=== PATIENT | male | born 1960 | race Caucasian/White ===

== ENCOUNTER 2023-08-16 00:50 | Inpatient (IN) | payer BC, OTHER ==
[2023-08-16] MEDS: Albuterol/Ipratropium 3.0-0.5 MG/3 ML Neb Soln ONE (01:14)
[2023-08-16] MEDS: Albuterol/Ipratropium 3.0-0.5 MG/3 ML Neb Soln NEB ONE (01:14)
[2023-08-16 01:18] LABS: BASOPHILS ABSOLUTE AUTO 0.1 K/mm3 (0.0-0.2); BASOPHILS PERCENT AUTO 0.5 % (0.0-1.0); EOSINOPHILS ABSOLUTE AUTO 0.1 K/mm3 (0.0-0.4); EOSINOPHILS PERCENT AUTO 1.1 % (0.0-6.0); HEMOGLOBIN 15.1 gm/dl (14.0-18.0); IMMATURE GRAN ABSOLUTE AUTO 0.05 K/mm3 (0.00-0.05); IMMATURE GRAN PERCENT AUTO 0.4 % (0.0-0.4); LYMPHOCYTES ABSOLUTE AUTO 2.9 K/mm3 (1.0-4.8); LYMPHOCYTES PERCENT AUTO 24.2 % (24.0-44.0); MEAN CORPUSCULAR HEMOGLOBIN 30.8 pg (28.0-32.0); MEAN CORPUSCULAR HGB CONC 32.8 g/dl (32.0-36.0); MEAN CORPUSCULAR VOLUME 93.7 fl (83.0-99.0); MEAN PLATELET VOLUME 10.5 fl (9.4-12.4); MONOCYTES PERCENT AUTO 8.1 % (0.0-8.0); NEUTROPHILS ABSOLUTE AUTO 7.8 K/mm3 (1.8-7.7); NEUTROPHILS PERCENT AUTO 65.7 % (41.0-71.0); PLATELET COUNT,PLT 199 K/mm3 (150-400); RED BLOOD CELL COUNT 4.91 M/mm3 (4.52-5.90)
[2023-08-16] MEDS: Sodium Chloride 0.9% 500 ML IV ONE (01:21)
[2023-08-16] MEDS: methylPREDNISolone Sodium Succinate 125 MG/2 ML SDV IVPUSH ONE (01:21)
[2023-08-16] MEDS: Nitroglycerin 0.4 MG Tab.SL SL ONE ×2 (01:31→04:52)
[2023-08-16 02:04] LABS: A/G RATIO 1.1 (1-2); ALBUMIN 3.7 g/dl (3.4-5.0); ANION GAP 13.2 (5-15); BILIRUBIN TOTAL 0.8 mg/dL (0.2-1.0); CALCIUM 9.3 mg/dL (8.5-10.1); EST CRCL DRUG DOSING (CG) 87.91 mL/min; POTASSIUM,K 4.2 mEq/L (3.5-5.1)
[2023-08-16] MEDS: Sodium Chloride 0.9% 10 ML Syringe FLUSH ONE (02:47)
[2023-08-16] MEDS: Sodium Chloride 0.9% 100 ML IV SCH (02:47)
[2023-08-16] MEDS: Iopamidol 755 Mg/ML 100 ML Bottle IVPUSH ONE (02:47)
[2023-08-16] MEDS: Nitroglycerin/D5W 25 MG/250 ML BOTTLE IV SCH (04:50)
[2023-08-16] MEDS ORDERED: Albuterol/Ipratropium 3.0-0.5 MG/3 ML Neb Soln NEB PRN (07:51)
[2023-08-16] MEDS ORDERED: Ondansetron 4 MG/2 ML SDV IV PRN (07:51)
[2023-08-16] MEDS ORDERED: Metoprolol Tartrate 5 MG/5 ML SDV IVPUSH PRN (07:59)
[2023-08-16] MEDS ORDERED: Diltiazem 125 MG in Sodium Chloride 0.9% 100 ML IV SCH (08:15)
[2023-08-16] MEDS ORDERED: niCARdipine HCl 25 MG in Sodium Chloride 0.9% 250 ML IV SCH (08:30)
[2023-08-16 08:46] LABS: TSH 0.785 uIU/mL (0.358-3.74)
[2023-08-16] MEDS: Metoprolol Tartrate 5 MG/5 ML SDV IVPUSH PRN (09:00)
[2023-08-16] MEDS: Diltiazem 25 MG/5 ML SDV IVPUSH ONE (09:00)
[2023-08-16] MEDS: Enoxaparin 40 MG/0.4 ML Syringe SUBCUT SCH (09:20)
[2023-08-16] MEDS: Carvedilol 3.125 MG Tab PO SCH (09:20)
[2023-08-16] MEDS: Losartan 25 MG Tab PO SCH (10:00)
[2023-08-16] MEDS: Metoprolol Tartrate 25 MG Tab PO SCH (10:08)
[2023-08-16] MEDS: Diltiazem 125 MG in Sodium Chloride 0.9% 100 ML IV SCH (11:55)
[2023-08-17 05:32] LABS: BASOPHILS PERCENT AUTO 0.3 % (0.0-1.0); EOSINOPHILS PERCENT AUTO 0.3 % (0.0-6.0); HEMATOCRIT 40.4 % (42.0-52.0); IMMATURE GRAN ABSOLUTE AUTO 0.06 K/mm3 (0.00-0.05); IMMATURE GRAN PERCENT AUTO 0.5 % (0.0-0.4); LYMPHOCYTES ABSOLUTE AUTO 2.5 K/mm3 (1.0-4.8); LYMPHOCYTES PERCENT AUTO 20.9 % (24.0-44.0); MEAN CORPUSCULAR HEMOGLOBIN 30.8 pg (28.0-32.0); MEAN CORPUSCULAR HGB CONC 33.2 g/dl (32.0-36.0); MEAN CORPUSCULAR VOLUME 92.9 fl (83.0-99.0); MEAN PLATELET VOLUME 11.5 fl (9.4-12.4); MONOCYTES ABSOLUTE AUTO 1.2 K/mm3 (0.0-0.8); MONOCYTES PERCENT AUTO 9.7 % (0.0-8.0); NEUTROPHILS ABSOLUTE AUTO 8.1 K/mm3 (1.8-7.7); NEUTROPHILS PERCENT AUTO 68.3 % (41.0-71.0); PLATELET COUNT,PLT 147 K/mm3 (150-400); RED BLOOD CELL COUNT 4.35 M/mm3 (4.52-5.90); WHITE BLOOD CELL COUNT,WBC 11.89 K/mm3 (3.9-11.3)
[2023-08-17 05:40] LABS: HEMOGLOBIN 13.4 gm/dl (14.0-18.0)
[2023-08-17 06:02] LABS: ALBUMIN 3.1 g/dl (3.4-5.0); ANION GAP 13.2 (5-15); CALCIUM 8.7 mg/dL (8.5-10.1); EST CRCL DRUG DOSING (CG) 87.91 mL/min; POTASSIUM,K 4.2 mEq/L (3.5-5.1); PROTEIN TOTAL,TP 6.1 g/dl (6.4-8.2)
[2023-08-17] MEDS ORDERED: Magnesium Sulfate (4.06 MEQ/ML) 5 GM/10 ML SDV IV ONE ×2 (07:52→12:20)
[2023-08-17] MEDS: atorvaSTATin 20 MG Tab PO SCH (08:36)
[2023-08-17] MEDS: Apixaban 5 MG Tab PO ONE (08:38)
[2023-08-17] MEDS: Aspirin 81 MG Tab.EC PO SCH (10:14)
[2023-08-17 10:47] LABS: BORDETELLA PARAPERT IS1001 Not Detected (Not Detected)
[2023-08-17] MEDS: Sodium Chloride 0.9% 1,000 ML ONE (12:31)
[2023-08-17] MEDS: Magnesium Sulfate/Water 2 GM in Premix Bag 1 BAG IV ONE (12:40)
[2023-08-17] MEDS: Propofol 200 MG/20 ML SDV IVPUSH ONE (13:00)
[2023-08-17] MEDS: Acetaminophen 325 MG Tab PO PRN (18:06)
[2023-08-18 05:40] LABS: A/G RATIO 1.1 (1-2); ALBUMIN 3.4 g/dl (3.4-5.0); ANION GAP 13.5 (5-15); BUN/CREATININE RATIO 31.7 (14-18); CALCIUM 8.9 mg/dL (8.5-10.1); CREATININE 1.2 mg/dL (0.7-1.3); EST CRCL DRUG DOSING (CG) 73.26 mL/min; POTASSIUM,K 4.5 mEq/L (3.5-5.1); PROTEIN TOTAL,TP 6.4 g/dl (6.4-8.2)
[2023-08-18 05:49] LABS: BASOPHILS PERCENT AUTO 0.4 % (0.0-1.0); EOSINOPHILS PERCENT AUTO 0.4 % (0.0-6.0); HEMOGLOBIN 14.4 gm/dl (14.0-18.0); IMMATURE GRAN ABSOLUTE AUTO 0.07 K/mm3 (0.00-0.05); IMMATURE GRAN PERCENT AUTO 0.6 % (0.0-0.4); LYMPHOCYTES ABSOLUTE AUTO 2.1 K/mm3 (1.0-4.8); LYMPHOCYTES PERCENT AUTO 18.3 % (24.0-44.0); MEAN CORPUSCULAR HEMOGLOBIN 31.2 pg (28.0-32.0); MEAN CORPUSCULAR HGB CONC 33.5 g/dl (32.0-36.0); MEAN CORPUSCULAR VOLUME 93.3 fl (83.0-99.0); MEAN PLATELET VOLUME 11.7 fl (9.4-12.4); MONOCYTES ABSOLUTE AUTO 1.2 K/mm3 (0.0-0.8); MONOCYTES PERCENT AUTO 10.8 % (0.0-8.0); NEUTROPHILS ABSOLUTE AUTO 7.9 K/mm3 (1.8-7.7); NEUTROPHILS PERCENT AUTO 69.5 % (41.0-71.0); PLATELET COUNT,PLT 156 K/mm3 (150-400); RED BLOOD CELL COUNT 4.61 M/mm3 (4.52-5.90)
[2023-08-18] MEDS ORDERED: Acetaminophen 325 MG Tab PO PRN (13:22)
[2023-08-18] MEDS: Apixaban 5 MG Tab PO SCH (14:07)
[2023-08-19 04:43] LABS: BASOPHILS ABSOLUTE AUTO 0.1 K/mm3 (0.0-0.2); BASOPHILS PERCENT AUTO 0.5 % (0.0-1.0); EOSINOPHILS ABSOLUTE AUTO 0.1 K/mm3 (0.0-0.4); EOSINOPHILS PERCENT AUTO 0.7 % (0.0-6.0); HEMATOCRIT 43.1 % (42.0-52.0); HEMOGLOBIN 14.1 gm/dl (14.0-18.0); IMMATURE GRAN ABSOLUTE AUTO 0.03 K/mm3 (0.00-0.05); IMMATURE GRAN PERCENT AUTO 0.3 % (0.0-0.4); LYMPHOCYTES ABSOLUTE AUTO 2.5 K/mm3 (1.0-4.8); MEAN CORPUSCULAR HGB CONC 32.7 g/dl (32.0-36.0); MEAN CORPUSCULAR VOLUME 94.7 fl (83.0-99.0); MONOCYTES ABSOLUTE AUTO 1.3 K/mm3 (0.0-0.8); MONOCYTES PERCENT AUTO 11.5 % (0.0-8.0); NEUTROPHILS ABSOLUTE AUTO 6.9 K/mm3 (1.8-7.7); PLATELET COUNT,PLT 149 K/mm3 (150-400); RED BLOOD CELL COUNT 4.55 M/mm3 (4.52-5.90); WHITE BLOOD CELL COUNT,WBC 10.84 K/mm3 (3.9-11.3)
[2023-08-19 05:11] LABS: A/G RATIO 1.1 (1-2); ALBUMIN 3.5 g/dl (3.4-5.0); ANION GAP 12.2 (5-15); BILIRUBIN TOTAL 1.6 mg/dL (0.2-1.0); BUN/CREATININE RATIO 25.5 (14-18); CALCIUM 8.9 mg/dL (8.5-10.1); CREATININE 1.1 mg/dL (0.7-1.3); EST CRCL DRUG DOSING (CG) 79.92 mL/min; MAGNESIUM 2.3 mg/dL (1.8-2.4); PHOSPHORUS 3.7 mg/dL (2.6-4.7); POTASSIUM,K 4.2 mEq/L (3.5-5.1); PROTEIN TOTAL,TP 6.7 g/dl (6.4-8.2)
[2023-08-19] MEDS: Furosemide 20 MG/2 ML VIAL IVPUSH ONE (08:56)
[2023-08-19] MEDS: Melatonin 3 MG Tab PO SCH (20:35)
[2023-08-20 05:09] LABS: ALBUMIN 2.9 g/dl (3.4-5.0); ANION GAP 9.8 (5-15); BILIRUBIN TOTAL 1.5 mg/dL (0.2-1.0); BUN/CREATININE RATIO 27.8 (14-18); CALCIUM 8.5 mg/dL (8.5-10.1); CREATININE 0.9 mg/dL (0.7-1.3); EST CRCL DRUG DOSING (CG) 97.68 mL/min; POTASSIUM,K 3.8 mEq/L (3.5-5.1); PROTEIN TOTAL,TP 5.8 g/dl (6.4-8.2)
== END 2023-08-20 18:40 | disposition home or self-care (01) | DRG 304 ==
LOC: JD.ED 00:50 → JD.ICU 07:52 → JD.MS 08-19 17:05
PROVIDERS: ADMIT Student in an Organized Health Care Education/Training Program; ATTEND Student in an Organized Health Care Education/Training Program
PROC: 5A09457 Assistance with Respiratory Ventilation, 24-96 Consecutive Hours, Continuous Positive Airway Pressure (ICD-10-PCS; principal; 2023-08-16)
PROC: 5A2204Z Restoration of Cardiac Rhythm, Single (ICD-10-PCS; 2023-08-17)
DX: I16.0 Hypertensive urgency (principal); J96.01 Acute respiratory failure with hypoxia; I48.92 Unspecified atrial flutter; E87.1 Hypo-osmolality and hyponatremia; I42.0 Dilated cardiomyopathy; F17.210 Nicotine dependence, cigarettes, uncomplicated; D72.829 Elevated white blood cell count, unspecified; R79.89 Other specified abnormal findings of blood chemistry; I25.10 Atherosclerotic heart disease of native coronary artery without angina pectoris; R73.03 Prediabetes; L29.9 Pruritus, unspecified; G47.33 Obstructive sleep apnea (adult) (pediatric); J44.9 Chronic obstructive pulmonary disease, unspecified; I10 Essential (primary) hypertension
CPT/HCPCS: 36415; 71045; 71045-26; 71275; 71275-26; 72191; 72191-26; 74175; 74175-26; 76705; 76705-26; 78227; 78227-26; 80053; 80061; 82947; 83036; 83735; 83880; 84100; 84443; 84484; 85025; 85379; 87486; 87581; 87633; 93005; 93306; 94640; 94660; 96361; 96365; 96366; 96375; 97161-GP; 99285-25; A9270-GY; A9537; J0282; J1650; J1940; J2305; J2704; J2919; J3475; J3490; J7030; J7620-GY; Q9967